=== PATIENT | female | born 1965 | race Caucasian/White ===

== ENCOUNTER 2020-04-16 00:01 | Observation (INO) | payer BC ==
[~2020-04-16] VITALS: Ht 160 cm; Wt 61.0 kg
[~2020-04-16 00:01] MED LIST: ATENOLOL25 MG OR; XANAX0.25 MG OR
--- NOTE | 2020-04-16 00:02 | NUR ---
PT IMMEDIATELY TO ER RM 13 PT HAS L SHOULDER L RIB PAINS X1-2 DAYS AFTER DEEP SEAA FISHING TRIP CATCHING A .LOT OF HEAVY FISH NON-SMOKER NO NAUSEA NO SOB NO SWEATS NO CARDIAC HX W/P/D SKIN.SR NO ST T CHANGES
[2020-04-16 00:53] LABS: HEMATOCRIT 36.9 % (37.0-47.0); IMMATURE GRANULOCYTES 0.5 % (0.0-5.0); MEAN CELL VOLUME 96.6 fL CALC (80.0-100.0); MEAN CORPUSCULAR HGB 31.7 pG CALC (26.0-32.0); MEAN CORPUSCULAR HGB CONC 32.8 g/dL CAL (32.0-36.0); NEUT# 4.51 thou/uL (2.00-7.15); RED BLOOD COUNT 3.82 mill/uL (4.20-5.60); RED CELL DISTRI WIDTH 12.3 % (11.5-15.5)
[2020-04-16 00:57] LABS: HEMOGLOBIN 12.1 g/dl (12.0-16.0)
[2020-04-16] MEDS ORDERED: FLUOXETINE20 MG PO (01:04)
[2020-04-16] MEDS ORDERED: SYNTHROID100 MCG PO (01:04)
--- NOTE | 2020-04-16 01:07 | NUR ---
PAIN AT REST HAS SUBSIDED ALMOST RESOLVED COMPLETELY PAIN INCREASES WHEN SHE DEEP BREATHES
[2020-04-16 01:09] LABS: INTERNATIONAL NORMALIZED RATIO 0.9 RATIO (0.7-1.3); PROTHROMBIN TIME 9.3 SECONDS (9.0-12.5)
[2020-04-16 01:20] LABS: ALBUMIN 4.2 g/dL (3.2-5.0); ALKALINE PHOSPHATASE 62 u/l (38-126); AMYLASE 67 u/l (30-110); ANION GAP 14 (6-22 (CALC)); BILIRUBIN, TOTAL 0.4 mg/dL (0.0-1.4); BUN 17 mg/dL (7-17); BUN/CREATININE RATIO 23 (12-20 (CALC)); CARBON DIOXIDE 24 mmol/l (22-30); CHLORIDE 102 mmol/l (95-108); CREATININE 0.8 mg/dL (0.5-1.0); GFR > 60 ML/MIN (>=60 (CALC)); GFR FOR AFR.AMER. > 60 ML/MIN (>=60 (CALC)); LIPASE 68 u/l (23-300); POTASSIUM 3.8 mmol/l (3.5-5.1); SGOT/AST 26 u/l (14-36); SODIUM 135 mmol/l (137-146); TOTAL PROTEIN 6.8 g/dL (6.3-8.2)
[2020-04-16 01:32] LABS: MYOGLOBIN 18 ng/mL (0 - 62)
--- NOTE | 2020-04-16 02:01 | NUR ---
NO PAIN AT REST BUT PAIN L LATERAL BIBS WITH DEEP BREATH
--- NOTE | 2020-04-16 03:06 | NUR ---
LIGHTS OUT AT PT'S REQUEST SR NO C/O PAIN NO DYSPNEA.W/P/D SKIN
--- NOTE | 2020-04-16 04:15 | NUR ---
W/P/D SKIN SR DENIES PAIN
[2020-04-16 04:30] LABS: URINE BILIRUBIN - DIPSTICK NEGATIVE (NEGATIVE); URINE BLOOD DIPSTICK NEGATIVE (NEGATIVE); URINE COLOR YELLOW; URINE GLUCOSE - DIPSTICK NEGATIVE (NEGATIVE); URINE KETONE NEGATIVE (NEGATIVE); URINE LEUK ESTERASE NEGATIVE (NEGATIVE); URINE NITRITE - DIPSTICK NEGATIVE (Negative); URINE PH 6.5 (4.5-8.0); URINE PROTEIN - DIPSTICK NEGATIVE (NEG-TRACE); URINE SPECIFIC GRAVITY <=1.005; URINE UROBILINOGEN - DIPSTICK 0.2 E.U./dL (0.2)
--- NOTE | 2020-04-16 05:15 | NUR ---
SR NO ECTOPY NO ST T CHANGES DENIES PAIN SLEEPING IN INTERVALS
--- NOTE | 2020-04-16 06:05 | NUR ---
PHONE REPORT TO NURSE WALSH ON MS
--- NOTE | 2020-04-16 06:07 | NUR ---
PT MEDICATED FOR L SHOULDER PAIN RATED AT 5 ON SCALE SR NO ECRTOPY NO SWEATS NO SOB NO NAUSEA
--- NOTE | 2020-04-16 06:11 | NUR ---
PT TRANSPORTED TO [facility] RM 272 IN STAABLE CONDITION
--- NOTE | 2020-04-16 06:15 | NUR ---
PT ARRIVED TO FLOOR VIA STRETCHER ACCOMPAINED BY ER STAFF. ALERT AND ORIENTED X3. C/O LEFT SHOULDER PAIN, MEDICATED PRIOR TO ARRIVAL TO FLOOR. ICE WATER AND COFFEE PROVIDED UPON REQUEST. PT ORIENTED TO ROOM AND CALL LIGHT SYSTEM. VSS. ARCHIVIST POLITICAL HISTORY IN PLACE. IV SITE APPEARS HEALTHY. DISCUSSED POC. PT VERBALIZED UNDERSTANDIND. CALL LIGHT WITHIN REACH. WILL CONTINUE TO MONITOR.
--- NOTE | 2020-04-16 08:15 | NUR ---
KUSH ARPN IN TO VISIT WITH PT.
--- NOTE | 2020-04-16 08:30 | NUR ---
ASSESSMENT IS COMPLETED: IV SITE IS FREE FROM REDNESS OR EDEMA. HR IS REG,PULSES ARE STRONG X4, ABD IS SOFT WITH ACTIVE BS. BREATH SOUNDS ARE CLEAR,BILATERALLY, TELE MONITOR IN PLACE.
[2020-04-16 08:40] VITALS: BP 96/62
--- NOTE | 2020-04-16 09:27 | NUR ---
REMOVED THE NTPASTE OFF HER CHEST WALL.
[2020-04-16] MEDS ORDERED: MELOXICAM7.5 MG PO (11:34)
--- NOTE | 2020-04-16 12:00 | NUR ---
PT IS RELAXING IN BED WITH NO DISTRESS NOTED. IV SITE IS FREE FROM REDNESS OR EDEMA. TELE MONITOR IN PLACE. PT C/O PAIN, REVIEWING DISCHARGE INSTRUCTIONS.
--- NOTE | 2020-04-16 14:19 | NUR ---
PT C/O PAIN, NO ORDERS FOR PAIN MEDICATION., INQUIRED WITH DR HARPER RE: PAIN MEDICATION. AT 1423 ORDER RECEIVED FOR MOTRIN.
--- NOTE | 2020-04-16 14:28 | NUR ---
PT STATED' MY DAUGHTER IS A PA: "AND WANTS ME TO GET A MUSCLE RELAXER, THE MELOXICAM IS NOT A MUSCLE RELAXER BUT JUST A HYPED UP MOTRIN" INQUIRED WITH DR LEROY YI; MUSCLE RELAXER. AT 1436 NEW ORDERS GIVEN FOR THE MUSCLE RELAXER.
--- NOTE | 2020-04-16 15:15 | NUR ---
MEDICATION WAS GIVEN AND ASSISTED PT WITH GETTING DRESSED. EXPLAINED ABOUT THE MELOXICAM IN THE PHARMACY. VERBALIZED UNDERSTANDING.
--- NOTE | 2020-04-16 15:45 | NUR ---
Discharge instructions given. Patient verbalizes understanding of same. Discharged in stable condition via Wheelchair to Home with family. All belongings sent with pt.
--- NOTE | 2020-04-16 16:00 | NUR ---
IV SITE DISCONTINUED CATHETER INTACT. NO REDNESS OR EDEMA. DISCHARGE INSTRUCTIONS GIVEN AND VERBALIZED UNDERSTANDING.
== END 2020-04-16 15:01 | disposition home or self-care (01) | DRG 313 ==
LOC: ED 00:01 → ED-I 04:10 → ED 04:24 → MS2 04:25
PROVIDERS: Emergency Medicine; ADMIT Internal Medicine; ATTEND Internal Medicine
DX: R07.9 Chest pain, unspecified (principal); M25.512 Pain in left shoulder; I95.2 Hypotension due to drugs; T46.3X5A Adverse effect of coronary vasodilators, initial encounter; E03.9 Hypothyroidism, unspecified; Z83.2 Family history of diseases of the blood and blood-forming organs and certain disorders involving the immune mechanism; Z20.828 Contact with and (suspected) exposure to other viral communicable diseases
CPT/HCPCS: G0378; Q9967

== ENCOUNTER 2020-09-14 16:03 | Emergency (ER) | payer BC ==
[~2020-09-14] VITALS: Ht 160 cm; Wt 66.0 kg
[~2020-09-14 16:03] MED LIST changes: -ATENOLOL25 MG OR; +ATENOLOL25 MG PO; +FLUOXETINE20 MG PO; +MELOXICAM7.5 MG PO; +SYNTHROID100 MCG PO
[2020-09-14 17:10] LABS: URINE BILIRUBIN - DIPSTICK NEGATIVE (NEGATIVE); URINE BLOOD DIPSTICK NEGATIVE (NEGATIVE); URINE COLOR YELLOW; URINE GLUCOSE - DIPSTICK 100 mg/dL (NEGATIVE); URINE KETONE NEGATIVE (NEGATIVE); URINE LEUK ESTERASE NEGATIVE (NEGATIVE); URINE NITRITE - DIPSTICK NEGATIVE (Negative); URINE PH 6.5 (4.5-8.0); URINE PROTEIN - DIPSTICK NEGATIVE (NEG-TRACE); URINE UROBILINOGEN - DIPSTICK 0.2 E.U./dL (0.2)
[2020-09-14] MEDS ORDERED: MEDDOSEPAK PO (18:37)
[2020-09-14] MEDS ORDERED: NAPROXEN375 MG PO (18:37)
[2020-09-14 18:45] VITALS: BP 131/79
== END 2020-09-14 18:45 | disposition home or self-care (01) | DRG 552 ==
LOC: ED 16:03
PROVIDERS: Family Medicine
DX: M54.5 Low back pain (principal)